=== PATIENT | female | born 1985 | race Caucasian/White ===

== ENCOUNTER 2019-12-03 22:02 | Emergency (ER) | payer BC ==
[~2019-12-03] VITALS: Ht 162.6 cm; Wt 68.1 kg
[2019-12-03 22:08] VITALS: BP 148/107
[2019-12-03] MEDS ORDERED: LORazepam 2 MG/ML VIAL IM ONE (22:25)
[2019-12-03] MEDS ORDERED: NACL 0.9% 500 ML IV ONE (23:55)
[2019-12-04 00:37] LABS: BASOPHILS % (AUTO) 0.9 % (0.0-2.0); EOSINOPHILS # (AUTO) 0.1 K/uL (0-0.4); EOSINOPHILS % (AUTO) 3.1 % (0.0-4.0); HEMATOCRIT 41.3 % (36-48); LYMPHOCYTES # (AUTO) 1.3 K/uL (2.5-16.5); LYMPHOCYTES % (AUTO) 27.9 % (20.5-51.1); MEAN CORPUSCULAR HEMOGLOBIN 33 pg (27-31); MEAN CORPUSCULAR HGB CONC 34 g/dL (33-37); MEAN CORPUSCULAR VOLUME 96.5 fL (80-94); MONOCYTES # (AUTO) 0.3 K/uL (0.8-1.0); MONOCYTES % (AUTO) 7.3 % (1.7-9.3); NEUTROPHILS # (AUTO) 2.8 K/uL (1.8-7.7); NEUTROPHILS % (AUTO) 60.8 % (42.2-75.2); PLATELET COUNT (AUTO) 215 K/uL (140-450); RED BLOOD CELL COUNT(AUTO) 4.28 MIL/uL (4.20-5.40); RED CELL DISTRIBUTION WIDTH 13.9 % (11.6-13.7); WHITE BLOOD COUNT (AUTO) 4.5 K/uL (4.8-10.8)
[2019-12-04 00:51] LABS: ALBUMIN 3.9 g/dL (3.4-5.0); ANION GAP 15.7 (8-16); CARBON DIOXIDE 26.1 mmol/L (21-32); CREATININE 0.6 mg/dL (0.6-1.3); TOTAL BILIRUBIN 0.5 mg/dL (0.0-1.0)
[2019-12-04 00:57] LABS: POTASSIUM 2.8 mmol/L (3.5-5.1)
[2019-12-04] MEDS ORDERED: POTASSIUM CHLORIDE 10 MEQ TABER PO ONE (01:00)
[2019-12-04 01:49] VITALS: BP 114/76
== END 2019-12-04 01:49 | disposition home or self-care (01) ==
LOC: MED 22:02
DX: F41.0 Panic disorder [episodic paroxysmal anxiety] (principal); R03.0 Elevated blood-pressure reading, without diagnosis of hypertension; E87.6 Hypokalemia; F17.200 Nicotine dependence, unspecified, uncomplicated; R11.10 Vomiting, unspecified; Z88.6 Allergy status to analgesic agent
CPT/HCPCS: 36415; 80053; 85025; 96360; 96372; 99283; J2060; J7030